=== PATIENT | female | born 1970 | race Caucasian/White ===

== ENCOUNTER 2018-10-20 03:53 | Emergency (ER) | payer BC ==
[~2018-10-20] VITALS: Ht 172.7 cm; Wt 88.2 kg
[2018-10-20 04:00] VITALS: Ht 172.7 cm; Wt 88.2 kg
[2018-10-20] MEDS ORDERED: CYMBALTA30 MG PO (04:02)
[2018-10-20] MEDS ORDERED: XANAX1 MG PO (04:02)
[2018-10-20] MEDS ORDERED: REMERON30 MG PO (04:03)
[2018-10-20] MEDS ORDERED: ULTRAM50 MG PO (04:03)
[2018-10-20] MEDS ORDERED: ADDERALL XR 3030 MG PO (04:04)
[2018-10-20 04:32] LABS: BASOPHILS 0.2 % (0-2); EOSINOPHILS 1.2 % (0-7); HEMATOCRIT 37.9 % (36.0-48.0); HEMOGLOBIN 13.2 g/dL (12-16); IMMATURE GRANULOCYTES 0.3 % (0-5); LYMPHOCYTES 23.2 % (15-50); MCH 29.1 pg (26.0-34.0); MCHC 34.8 g/dL (31.0-37.0); MCV 83.5 fL (80.0-100.0); MEAN PLATELET VOLUME 9.5 fL (7.4-10.4); MONOCYTES 8.2 % (2-11); NEUTROPHILS 66.9 % (40-80); PLATELET COUNT 205 10x3/uL (130-400); RBC 4.54 10x6/uL (4.00-5.40); RDW 13.3 % (11.5-14.5); WBC 6.6 10x3/uL (4.8-10.8)
[2018-10-20 04:42] LABS: APTT 29.9 SECONDS (22.8-39.4); INR 1.04 (0.85-1.17); PROTIME 13.1 SECONDS (11.6-15.0)
[2018-10-20 04:43] LABS: D-DIMER-QUANTITATIVE 0.48 ug/mLFEU (0.20-0.54)
[2018-10-20 04:47] LABS: ALBUMIN 3.7 g/dL (3.4-5.0); ANION GAP 13.2 mmol/L (8-16); BILIRUBIN - TOTAL 0.3 mg/dL (0.2-1.3); CARBON DIOXIDE 27.6 mmol/L (21.0-32.0); CREATININE - SERUM 0.9 mg/dL (0.6-1.3); POTASSIUM - SERUM 3.8 mmol/L (3.5-5.1); PROTEIN - SERUM 7.8 g/dL (6.4-8.2)
[2018-10-20 04:51] LABS: APPEARANCE CLEAR (CLEAR); BILIRUBIN NEGATIVE (NEGATIVE); COLOR YELLOW (YELLOW); GLUCOSE NEGATIVE (NEGATIVE); KETONE NEGATIVE (NEGATIVE); NITRITE NEGATIVE (NEGATIVE); PROTEIN NEGATIVE (NEGATIVE); UROBILINOGEN NORMAL (NORMAL); WHITE CELLS - URINE 0-5 /hpf (0-5)
[2018-10-20 05:10] VITALS: BP 141/88
== END 2018-10-20 05:10 | disposition home or self-care (01) ==
LOC: D.ER 03:53
PROVIDERS: Family Medicine
DX: M54.5 Low back pain (principal); M79.661 Pain in right lower leg